=== PATIENT | female | born 1965 | race Caucasian/White ===

== ENCOUNTER 2021-12-08 09:20 | Emergency (ER) | payer BC ==
[2021-12-08 12:16] LABS: HEMOGLOBIN 13.5 gm/dl (12.3-15.3); RED BLOOD COUNT 4.34 M/UL (4.00-5.10); WHITE BLOOD COUNT 4.7 K/UL (4.5-11.0)
[2021-12-08 12:30] LABS: BUN/CREATININE RATIO 20 (0-10)
== END 2021-12-08 13:49 | disposition home or self-care (01) ==
LOC: ER1 09:20
PROVIDERS: Physician Assistant
DX: M16.12 Unilateral primary osteoarthritis, left hip (principal); Z88.0 Allergy status to penicillin; Z88.8 Allergy status to other drugs, medicaments and biological substances; W19.XXXA Unspecified fall, initial encounter
CPT/HCPCS: 73700; 80048; 85025; 99284; J1885